=== PATIENT | female | born 1990 | race Caucasian/White ===

== ENCOUNTER 2018-11-19 20:32 | Emergency (ER) | payer MEDICAID, OTHER ==
[~2018-11-19] VITALS: Ht 162.6 cm; Wt 64.0 kg
[~2018-11-19 20:32] MED LIST: HYDR-4383 PO
[2018-11-19 20:43] VITALS: BP 125/78
--- NOTE | 2018-11-19 20:47 | NUR ---
UNABLE TO COMPLETE DOCUMENTATION DUE TO PATIENT REFUSING TO ANSWER QUESTIONS.
== END 2018-11-19 21:57 ==
LOC: ER 20:35
DX: Z04.1 Encounter for examination and observation following transport accident (principal); I10 Essential (primary) hypertension; Z90.89 Acquired absence of other organs; V49.69XA Unspecified car occupant injured in collision with other motor vehicles in traffic accident, initial encounter; Y93.89 Activity, other specified; Y92.488 Other paved roadways as the place of occurrence of the external cause; Y99.8 Other external cause status
CPT/HCPCS: 99283

== ENCOUNTER 2021-01-15 08:20 | Emergency (ER) | payer OTHER ==
[~2021-01-15] VITALS: Ht 152.4 cm; Wt 78.3 kg
[2021-01-15 08:37] VITALS: BP 123/80
[2021-01-15] MEDS ORDERED: LIDOcaine 1% W/epiNEPHrine 1:200,000 10ml vial IJ ONE (09:25)
[2021-01-15] MEDS ORDERED: TETanus/Pertussis (Acell)/Diphther VAC/PF (Tdap-Adult) 0.5ml syringe IMVAC ONE (09:25)
[2021-01-15] MEDS ORDERED: AMOX-117 PO (09:57)
[2021-01-15] MEDS ORDERED: TRAM50TA2 PO (09:57)
== END 2021-01-15 10:20 | disposition home or self-care (01) ==
LOC: ER 08:21
DX: S81.811A Laceration without foreign body, right lower leg, initial encounter (principal); I10 Essential (primary) hypertension; Z20.3 Contact with and (suspected) exposure to rabies; Z90.89 Acquired absence of other organs; Z98.890 Other specified postprocedural states; Z72.89 Other problems related to lifestyle; Z79.2 Long term (current) use of antibiotics; Z79.899 Other long term (current) drug therapy; W54.0XXA Bitten by dog, initial encounter; Y93.89 Activity, other specified; Y92.89 Other specified places as the place of occurrence of the external cause; Y99.8 Other external cause status
CPT/HCPCS: 12001; 12002; 90471; 90715; 99283